=== PATIENT | female | born 1950 | race African-American/Black ===

== ENCOUNTER 2016-06-12 10:09 | Emergency (ER) | payer OTHER ==
--- NOTE | 2016-06-12 11:21 | EDDOCDS ---
Nurse's Notes [facility] Name: Jazzy Farmer Age: 66 yrs Sex: Female : 1950 Arrival Date: 06/12/2016 Time: 10:09 Bed Triage 2 Private MD: NO PRIMARY PHYSICIAN, . Diagnosis: Streptococcal pharyngitis;Fever presenting with conditions classified elsewhere-BY HISTORY Presentation: 06/12 10:16 Presenting complaint: Patient states: Sore throat, congestion and cough for three days. jo3 Risk factors: Stridor is not present. Drooling is not present. Shortness of breath is not present. Cellulitis is not present. Adult Sepsis Screening: The patient does not have new or worsening altered mentation. Patient's respiratory rate is less than 22. Systolic blood pressure is greater than 100. Patient has a qSOFA score of 0- Negative Sepsis Screen. Suicide/Homicide risk assessment- the patient denies having any suicidal and/or homicidal ideations and does not present with any other emotional, behavioral or mental health complaints. 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 Transition of care: patient was not received from another setting of care. 10:16 Acuity: NOHEMY Level 4 jo3 10:16 Method Of Arrival: Walkin/Carried/Asstd jo3 Triage Assessment: 10:20 General: Appears in no apparent distress, Behavior is appropriate for age, cooperative. jo3 Neurological: Level of Consciousness is awake, alert, Oriented to person, place, time. Derm: Skin is pink, warm & dry. Historical: - Allergies: No known drug Allergies; - Home Meds: 1. Diovan 40 mg oral tab 1 tab once daily 2. levothyroxine Unknown Oral once daily 3. HCTZ 25mg daily 4. aspirin 81 mg Oral tab 1 tab once daily - PMHx: Hypothyroidism; Hypertension; - PSHx: back surgery spinal fusion; abdominoplasty; Hysterectomy; C Section x4; - Social history: Smoking status: Patient states former smoker of tobacco. No barriers to communication noted, The patient speaks fluent Chilean, Speaks appropriately for age. - Family history: Not pertinent. - : The pt / caregiver states he / she is not on anticoagulants. Home medication list is obtained from the patient. - Exposure Risk Screening:: None identified. Screenin:37 Screening information is obtained from the patient. Fall risk: No risks identified. ck1 Assistance ADL's: requires no assistance with activities of daily living. Abuse/DV Screen: The patient / caregiver reports he/she is: not in a situation that causes fear, pain or injury. Nutritional screening: No deficits noted. Advance Directives: Currently, there is no health care proxy. home support is adequate. Assessment: 10:37 General: Appears in no apparent distress, comfortable, Behavior is appropriate for age, ck1 cooperative. Pain: Location: throat Pain currently is 6 out of 10 on a pain scale. EENT: Throat is reddened has patchy exudate has enlarged tonsils bilaterally with gag reflex present. Respiratory: Airway is patent Respiratory effort is unlabored, Respiratory pattern is regular, symmetrical. Derm: Skin is pink, warm & dry. 11:19 General: Appears in no apparent distress, comfortable, Behavior is appropriate for age, jo3 cooperative, pleasant. Neurological: Level of Consciousness is awake, alert, Oriented to person, place, time. Respiratory: Airway is patent Respiratory effort is even, unlabored. Vital Signs: 10:10 BP 128 / 78; Pulse 67; Resp 18; Temp 97.9(O); Pulse Ox 97% on R/A; Weight 74.39 kg (R); elp Height 5 ft. 0 in. (152.40 cm) (R); Pain 8/10; 10:10 Body Mass Index 32.03 (74.39 kg, 152.40 cm) elp Vitals: 10:10 Log In Time: June 12, 2016 at 10:08. elp 10:40 Strep Screen is obtained and tested: Positive. ck1 ED Course: 10:09 Patient visited by Tammy Terrazas PCA. elp 10:09 Patient moved to Waiting elp 10:10 NO PRIMARY PHYSICIAN, . is Private Physician. elp 10:10 Patient visited by Tammy Terrazas PCA. elp 10:10 Patient moved to Pre RCE elp 10:16 Triage Initiated jo3 10:20 Patient visited by Loren Mccullough RN. jo3 10:31 Patient moved to Triage 2 jo3 10:37 The patient / caregiver is instructed regarding the plan of care and ED course. ck1 10:42 Mary Kat PA-C is PHCP. dt4 10:42 Brittani Hernandez MD is Attending Physician. dt4 10:42 Patient visited by Mary Kat PA-C. dt4 11:04 [facility] is Referral Physician. dt4 11:19 No IV's were initiated during this patient's visit. No procedures done that require jo3 assistance. Order Results: There are currently no results for this order. Outcome: 11:04 Discharge ordered by Provider. dt4 11:19 Discharge Assessment: Patient awake, alert and oriented x 3. No cognitive and/or jo3 functional deficits noted. Patient verbalized understanding of disposition instructions. patient administered narcotics - no. The following High Risk Discharge criteria are identified: None. Discharged to home ambulatory. Condition: stable. Discharge instructions given to patient, Instructed on discharge instructions, follow up and referral plans. medication usage, Demonstrated understanding of instructions, medications, Pt was receptive of discharge instructions/ teaching. Prescriptions given X 2. No special radiology studies were completed. Property sent home with patient. 11:20 Patient left the ED. jo3 Signatures: Selene Amador,RN RN ck1 Loren Mccullough RN RN jo3 Tammy Terrazas, SENIOR CONTROLS ANALYST SENIOR CONTROLS ANALYST elp Mary Kat PA-C PA-C dt4 [facility]
--- NOTE | 2016-06-12 11:21 | EDDOCDS ---
Physician Documentation [facility] Name: Jazzy Farmer Age: 66 yrs Sex: Female : 1950 Arrival Date: 06/12/2016 Time: 10:09 Bed Triage 2 Private MD: NO PRIMARY PHYSICIAN, . Disposition: 06/12/16 11:04 Discharged to Home/Self Care. Impression: Streptococcal pharyngitis, Fever presenting with conditions classified elsewhere - BY HISTORY. - Condition is Stable. - Discharge Instructions: Fever, Adult, Strep Throat. - Prescriptions for Amoxicillin 875 mg Oral Tablet - take 1 tablet by ORAL route every 12 hours for 10 days; 20 tablet. magic mouthwash Mucous Membrane Solution - as directed 5 milliliters by ORAL route 3-4 times daily As needed GARGLE, SWISH, SPIT. MAALOX, LIQUID BENADRYL, VISCOUS LIDOCAINE. 1:1:1; 237 milliliter. - Medication Reconciliation, Local Pharmacy Hours form. - Follow up: Emergency Department; When: As needed; Reason: Worsening of conditions. [facility]: [facility]; When: Call to arrange an appointment; Reason: Recheck today's complaints, Continuance of care, To establish care. - Problem is new. - Symptoms are unchanged. Historical: - Allergies: No known drug Allergies; - Home Meds: 1. Diovan 40 mg oral tab 1 tab once daily 2. levothyroxine Unknown Oral once daily 3. HCTZ 25mg daily 4. aspirin 81 mg Oral tab 1 tab once daily - PMHx: Hypothyroidism; Hypertension; - PSHx: back surgery spinal fusion; abdominoplasty; Hysterectomy; C Section x4; - Social history: Smoking status: Patient states former smoker of tobacco. No barriers to communication noted, The patient speaks fluent French, Speaks appropriately for age. - Family history: Not pertinent. - : The pt / caregiver states he / she is not on anticoagulants. Home medication list is obtained from the patient. - Exposure Risk Screening:: None identified. Vital Signs: 06/12 10:10 BP 128 / 78; Pulse 67; Resp 18; Temp 97.9(O); Pulse Ox 97% on R/A; Weight 74.39 kg / elp 164 lbs (R); Height 5 ft. 0 in. (152.40 cm) (R); Pain 8; 10:10 Body Mass Index 32.03 (74.39 kg, 152.40 cm) elp MDM: 10:23 Strep Screen, Nursing ordered. dt4 Signatures: Selene Amador,RN RN ck1 Loren McculloughRN RN jo3 Mary Kat, LANDEN SCHUSTER dt4 MTDD
--- NOTE | 2016-06-14 12:21 | EDDOCDS ---
Nurse's Notes [facility] Name: Jazzy Farmer Age: 66 yrs Sex: Female : 1950 Arrival Date: 06/12/2016 Time: 10:09 Bed Triage 2 Private MD: NO PRIMARY PHYSICIAN, . Diagnosis: Streptococcal pharyngitis;Fever presenting with conditions classified elsewhere-BY HISTORY Presentation: 06/12 10:16 Presenting complaint: Patient states: Sore throat, congestion and cough for three days. jo3 Risk factors: Stridor is not present. Drooling is not present. Shortness of breath is not present. Cellulitis is not present. Adult Sepsis Screening: The patient does not have new or worsening altered mentation. Patient's respiratory rate is less than 22. Systolic blood pressure is greater than 100. Patient has a qSOFA score of 0- Negative Sepsis Screen. Suicide/Homicide risk assessment- the patient denies having any suicidal and/or homicidal ideations and does not present with any other emotional, behavioral or mental health complaints. 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 Transition of care: patient was not received from another setting of care. 10:16 Acuity: NOHEMY Level 4 jo3 10:16 Method Of Arrival: Walkin/Carried/Asstd jo3 Triage Assessment: 10:20 General: Appears in no apparent distress, Behavior is appropriate for age, cooperative. jo3 Neurological: Level of Consciousness is awake, alert, Oriented to person, place, time. Derm: Skin is pink, warm & dry. Historical: - Allergies: No known drug Allergies; - Home Meds: 1. Diovan 40 mg oral tab 1 tab once daily 2. levothyroxine Unknown Oral once daily 3. HCTZ 25mg daily 4. aspirin 81 mg Oral tab 1 tab once daily - PMHx: Hypothyroidism; Hypertension; - PSHx: back surgery spinal fusion; abdominoplasty; Hysterectomy; C Section x4; - Social history: Smoking status: Patient states former smoker of tobacco. No barriers to communication noted, The patient speaks fluent Omani, Speaks appropriately for age. - Family history: Not pertinent. - : The pt / caregiver states he / she is not on anticoagulants. Home medication list is obtained from the patient. - Exposure Risk Screening:: None identified. Screenin:37 Screening information is obtained from the patient. Fall risk: No risks identified. ck1 Assistance ADL's: requires no assistance with activities of daily living. Abuse/DV Screen: The patient / caregiver reports he/she is: not in a situation that causes fear, pain or injury. Nutritional screening: No deficits noted. Advance Directives: Currently, there is no health care proxy. home support is adequate. Assessment: 10:37 General: Appears in no apparent distress, comfortable, Behavior is appropriate for age, ck1 cooperative. Pain: Location: throat Pain currently is 6 out of 10 on a pain scale. EENT: Throat is reddened has patchy exudate has enlarged tonsils bilaterally with gag reflex present. Respiratory: Airway is patent Respiratory effort is unlabored, Respiratory pattern is regular, symmetrical. Derm: Skin is pink, warm & dry. 11:19 General: Appears in no apparent distress, comfortable, Behavior is appropriate for age, jo3 cooperative, pleasant. Neurological: Level of Consciousness is awake, alert, Oriented to person, place, time. Respiratory: Airway is patent Respiratory effort is even, unlabored. Vital Signs: 10:10 BP 128 / 78; Pulse 67; Resp 18; Temp 97.9(O); Pulse Ox 97% on R/A; Weight 74.39 kg (R); elp Height 5 ft. 0 in. (152.40 cm) (R); Pain 8/10; 10:10 Body Mass Index 32.03 (74.39 kg, 152.40 cm) elp Vitals: 10:10 Log In Time: June 12, 2016 at 10:08. elp 10:40 Strep Screen is obtained and tested: Positive. ck1 ED Course: 10:09 Patient visited by Tammy Terrazas PCA. elp 10:09 Patient moved to Waiting elp 10:10 NO PRIMARY PHYSICIAN, . is Private Physician. elp 10:10 Patient visited by Tammy Terrazas PCA. elp 10:10 Patient moved to Pre RCE elp 10:16 Triage Initiated jo3 10:20 Patient visited by Loren Mccullough RN. jo3 10:31 Patient moved to Triage 2 jo3 10:37 The patient / caregiver is instructed regarding the plan of care and ED course. ck1 10:42 Mary Kat PA-C is PHCP. dt4 10:42 Brittani Hernandez MD is Attending Physician. dt4 10:42 Patient visited by Mary Kat PA-C. dt4 11:04 [facility] is Referral Physician. dt4 11:19 No IV's were initiated during this patient's visit. No procedures done that require jo3 assistance. 11:34 [facility] Payment Agreement was scanned into [employer] and attached to record. mm15 14:28 Patient name changed from Jazzy\S\\S\Farmer\S\ to Jazzy\S\ \S\Farmer. EDMS 15:01 T-Sheet-- Draft Copy was scanned into [employer] and attached to record. gb Order Results: There are currently no results for this order. Outcome: 11:04 Discharge ordered by Provider. dt4 11:19 Discharge Assessment: Patient awake, alert and oriented x 3. No cognitive and/or jo3 functional deficits noted. Patient verbalized understanding of disposition instructions. patient administered narcotics - no. The following High Risk Discharge criteria are identified: None. Discharged to home ambulatory. Condition: stable. Discharge instructions given to patient, Instructed on discharge instructions, follow up and referral plans. medication usage, Demonstrated understanding of instructions, medications, Pt was receptive of discharge instructions/ teaching. Prescriptions given X 2. No special radiology studies were completed. Property sent home with patient. 11:20 Patient left the ED. jo3 Signatures: Dispatcher [employer] EDNE Aliyah Squires, Reg Reg gb Selene AmadorRN RN ck1 Loren McculloughRN RN jo3 Amado Pereira mm15 Nini, Tammy, MECHANICAL FITTER MECHANICAL FITTER elp Mary Kat PA-C PA-C dt4 Chart Complete MTDD
--- NOTE | 2016-06-14 12:21 | EDDOCDS ---
Physician Documentation [facility] Name: Jazzy Farmer Age: 66 yrs Sex: Female : 1950 Arrival Date: 06/12/2016 Time: 10:09 Bed Triage 2 Private MD: NO PRIMARY PHYSICIAN, . Disposition: 06/12/16 11:04 Discharged to Home/Self Care. Impression: Streptococcal pharyngitis, Fever presenting with conditions classified elsewhere - BY HISTORY. - Condition is Stable. - Discharge Instructions: Fever, Adult, Strep Throat. - Prescriptions for Amoxicillin 875 mg Oral Tablet - take 1 tablet by ORAL route every 12 hours for 10 days; 20 tablet. magic mouthwash Mucous Membrane Solution - as directed 5 milliliters by ORAL route 3-4 times daily As needed GARGLE, SWISH, SPIT. MAALOX, LIQUID BENADRYL, VISCOUS LIDOCAINE. 1:1:1; 237 milliliter. - Medication Reconciliation, Local Pharmacy Hours form. - Follow up: Emergency Department; When: As needed; Reason: Worsening of conditions. Follow up: [facility]; When: Call to arrange an appointment; Reason: Recheck today's complaints, Continuance of care, To establish care. - Problem is new. - Symptoms are unchanged. Historical: - Allergies: No known drug Allergies; - Home Meds: 1. Diovan 40 mg oral tab 1 tab once daily 2. levothyroxine Unknown Oral once daily 3. HCTZ 25mg daily 4. aspirin 81 mg Oral tab 1 tab once daily - PMHx: Hypothyroidism; Hypertension; - PSHx: back surgery spinal fusion; abdominoplasty; Hysterectomy; C Section x4; - Social history: Smoking status: Patient states former smoker of tobacco. No barriers to communication noted, The patient speaks fluent Icelandic, Speaks appropriately for age. - Family history: Not pertinent. - : The pt / caregiver states he / she is not on anticoagulants. Home medication list is obtained from the patient. - Exposure Risk Screening:: None identified. Vital Signs: 06/12 10:10 BP 128 / 78; Pulse 67; Resp 18; Temp 97.9(O); Pulse Ox 97% on R/A; Weight 74.39 kg / elp 164 lbs (R); Height 5 ft. 0 in. (152.40 cm) (R); Pain 810; 10:10 Body Mass Index 32.03 (74.39 kg, 152.40 cm) elp MDM: 10:23 Strep Screen, Nursing ordered. dt4 : Financial registration complete. mm15 [facility] Payment Agreement was scanned into [employer] and attached to record. mm15 15:01 T-Sheet-- Draft Copy was scanned into [employer] and attached to record. gb Signatures: Aliyah Squires, Reg Reg gb Selene AmadorRN RN ck1 Loren McculloughRN RN jo3 Amado Pereira mm15 Mary Kat PA-C PA-C dt4 The chart was reviewed and I authenticate all verbal orders and agree with the evaluation and treatment provided.Attachments: [facility] Payment Agreement mm15 15:01 T-Sheet-- Draft Copy gb Chart Complete MTDD
--- NOTE | 2016-06-14 12:21 | EDDOCDS ---
Physician Documentation [facility] Name: Jazzy Farmer Age: 66 yrs Sex: Female : 1950 Arrival Date: 06/12/2016 Time: 10:09 Bed Triage 2 Private MD: NO PRIMARY PHYSICIAN, . Disposition: 06/12/16 11:04 Discharged to Home/Self Care. Impression: Streptococcal pharyngitis, Fever presenting with conditions classified elsewhere - BY HISTORY. - Condition is Stable. - Discharge Instructions: Fever, Adult, Strep Throat. - Prescriptions for Amoxicillin 875 mg Oral Tablet - take 1 tablet by ORAL route every 12 hours for 10 days; 20 tablet. magic mouthwash Mucous Membrane Solution - as directed 5 milliliters by ORAL route 3-4 times daily As needed GARGLE, SWISH, SPIT. MAALOX, LIQUID BENADRYL, VISCOUS LIDOCAINE. 1:1:1; 237 milliliter. - Medication Reconciliation, Local Pharmacy Hours form. - Follow up: Emergency Department; When: As needed; Reason: Worsening of conditions. Follow up: [facility]; When: Call to arrange an appointment; Reason: Recheck today's complaints, Continuance of care, To establish care. - Problem is new. - Symptoms are unchanged. Historical: - Allergies: No known drug Allergies; - Home Meds: 1. Diovan 40 mg oral tab 1 tab once daily 2. levothyroxine Unknown Oral once daily 3. HCTZ 25mg daily 4. aspirin 81 mg Oral tab 1 tab once daily - PMHx: Hypothyroidism; Hypertension; - PSHx: back surgery spinal fusion; abdominoplasty; Hysterectomy; C Section x4; - Social history: Smoking status: Patient states former smoker of tobacco. No barriers to communication noted, The patient speaks fluent Spanish, Speaks appropriately for age. - Family history: Not pertinent. - : The pt / caregiver states he / she is not on anticoagulants. Home medication list is obtained from the patient. - Exposure Risk Screening:: None identified. Vital Signs: 06/12 10:10 BP 128 / 78; Pulse 67; Resp 18; Temp 97.9(O); Pulse Ox 97% on R/A; Weight 74.39 kg / elp 164 lbs (R); Height 5 ft. 0 in. (152.40 cm) (R); Pain 810; 10:10 Body Mass Index 32.03 (74.39 kg, 152.40 cm) elp MDM: 10:23 Strep Screen, Nursing ordered. dt4 : Financial registration complete. mm15 [facility] Payment Agreement was scanned into [employer] and attached to record. mm15 15:01 T-Sheet-- Draft Copy was scanned into [employer] and attached to record. gb Signatures: Aliyah Squires, Reg Reg gb Selene AmadorRN RN ck1 Loren McculloughRN RN jo3 Amado Pereira mm15 Mary Kat PA-C PA-C dt4 The chart was reviewed and I authenticate all verbal orders and agree with the evaluation and treatment provided.Attachments: [facility] Payment Agreement mm15 15:01 T-Sheet-- Draft Copy gb Chart Complete MTDD
== END 2016-06-12 11:20 | disposition home or self-care (01) ==
LOC: M ED 10:09
DX: J02.0 Streptococcal pharyngitis (principal); R50.9 Fever, unspecified; I10 Essential (primary) hypertension; E03.9 Hypothyroidism, unspecified; Z79.899 Other long term (current) drug therapy

== ENCOUNTER 2016-12-21 09:52 | Emergency (ER) | payer MEDICARE, OTHER ==
[~2016-12-21] VITALS: Ht 152.4 cm; Wt 74.0 kg
[2016-12-21] MEDS ORDERED: ASPI81CH PO (10:00)
[2016-12-21] MEDS ORDERED: LEVO25TA5 PO (10:00)
[2016-12-21] MEDS ORDERED: VALS80TA PO (10:00)
[2016-12-21] MEDS ORDERED: HYDR25TAB PO (10:00)
--- NOTE | 2016-12-21 11:03 | REP ---
Left foot four views : There is no fracture or dislocation. Mineralization and joint spaces are normal. There are no calcifications or foreign bodies. Impression: Negative left foot. There is no significant change compared to 11/19/2015. . Signed by Clemente Lucas MD 12/21/2016 10:54 A
[2016-12-21 11:26] VITALS: BP 135/79
== END 2016-12-21 11:29 | disposition home or self-care (01) ==
LOC: M ED 09:52
DX: S93.602A Unspecified sprain of left foot, initial encounter (principal); X50.1XXA Overexertion from prolonged static or awkward postures, initial encounter; Y92.099 Unspecified place in other non-institutional residence as the place of occurrence of the external cause; Y93.9 Activity, unspecified; Y99.9 Unspecified external cause status; I10 Essential (primary) hypertension; E03.9 Hypothyroidism, unspecified; Z79.82 Long term (current) use of aspirin; Z79.899 Other long term (current) drug therapy

== ENCOUNTER → 2017-06-08 | Outpatient (CLI) | payer MEDICARE | LOC: M WHC 10:44 | DX: Z12.31 Encounter for screening mammogram for malignant neoplasm of breast (principal); R13.10 Dysphagia, unspecified; Z13.820 Encounter for screening for osteoporosis; M81.0 Age-related osteoporosis without current pathological fracture; M85.88 Other specified disorders of bone density and structure, other site | CPT/HCPCS: 77067 ==

== ENCOUNTER → 2017-10-15 | Outpatient (REF) | payer OTHER ==
[2017-10-15 17:13] LABS: ESTIMATED AVERAGE GLUCOSE 126 MG/DL (60-110)
[2017-10-15 17:20] LABS: CHOLESTEROL LEVEL 141 MG/DL (<200); CHOLESTEROL RISK RATIO 1.931 (<5); HDL CHOLESTEROL 73 MG/DL (>40); NON-HDL-C 68 MG/DL; TRIGLYCERIDES LEVEL 70 MG/DL (<150)
== END ==
LOC: M SFHCLERA 11:22
DX: E03.9 Hypothyroidism, unspecified (principal); E78.5 Hyperlipidemia, unspecified

== ENCOUNTER → 2017-10-15 | Outpatient (REF) | payer OTHER, MEDICARE ==
[2017-10-16 10:19] LABS: BASO # 0.1 10^3/uL (0.0-0.2); BASO % 1.1 % (0.0-1.0); EOS # 0.2 10^3/uL (0.0-0.50); HEMOGLOBIN 13.4 g/dl (12.0-15.5); IMMATURE GRANULOCYTE % 0.2 % (0-3.0); LYMPH # 2.8 10^3/uL (1.5-4.5); LYMPH % 44.1 % (24.0-44.0); MEAN CORPUSCULAR HEMOGLOBIN 29.6 pg (27.0-33.0); MEAN CORPUSCULAR HGB CONC 31.9 g/dl (32.0-36.5); MEAN CORPUSCULAR VOLUME 92.9 fl (80.0-96.0); MONO # 0.4 10^3/uL (0.0-0.8); MONO % 6.1 % (0.0-5.0); NEUTROPHILS # 2.9 10^3/uL (1.8-7.7); NEUTROPHILS % 45.5 % (36.0-66.0); PLATELET COUNT, AUTOMATED 287 10^3/uL (150-450); RED BLOOD COUNT 4.52 10^6/uL (4.00-5.40); RED CELL DISTRIBUTION WIDTH 13.6 % (11.5-14.5); WHITE BLOOD COUNT 6.3 10^3/uL (4.0-10.0)
[2017-10-16 10:31] LABS: URIC ACID 3.9 MG/DL (2.6-6.0)
[2017-10-16 10:35] LABS: ERYTHROCYTE SEDIMENTATION RATE 7 mm/hr (0-30)
== END ==
LOC: M LAB REF 09:48
DX: M10.00 Idiopathic gout, unspecified site (principal)

== ENCOUNTER → 2018-03-03 | Outpatient (CLI) | payer OTHER, MEDICARE | LOC: M LRY 10:54 | DX: M17.12 Unilateral primary osteoarthritis, left knee (principal); S83.242A Other tear of medial meniscus, current injury, left knee, initial encounter; X58.XXXA Exposure to other specified factors, initial encounter; Y92.89 Other specified places as the place of occurrence of the external cause | CPT/HCPCS: 73564 ==

== ENCOUNTER → 2018-03-12 | Outpatient (CLI) | payer MEDICARE, OTHER | LOC: M LRY 10:20 | DX: M79.641 Pain in right hand (principal) | CPT/HCPCS: 73130 ==

== ENCOUNTER 2018-07-03 09:34 | Emergency (ER) | payer MEDICARE, OTHER ==
[~2018-07-03] VITALS: Ht 152.4 cm; Wt 72.7 kg
[~2018-07-03 09:34] MED LIST: ASPI81CH PO; HYDR25TAB PO; LEVO25TA5 PO; VALS80TA PO
[2018-07-03 09:35] VITALS: BP 147/82
--- NOTE | 2018-07-03 10:30 | REP ---
Left knee five views: There are no comparisons. There is no fracture or dislocation. There is no hemarthrosis. There is chondrocalcinosis suggestive of CPPD. There is mild joint space narrowing of the medial compartment. There is joint space narrowing and osteophytic formation of the patellofemoral compartment. The findings are compatible with osteoarthritis. Impression: No fracture, dislocation, or hemarthrosis. Chondrocalcinosis suggestive of CPPD. Osteoarthritis. Electronically Signed by Clemente Lucas MD 07/03/2018 10:23 A
[2018-07-03] MEDS ORDERED: NAPR-50 PO (11:08)
== END 2018-07-03 11:18 | disposition home or self-care (01) ==
LOC: M ED 09:34
DX: S83.92XA Sprain of unspecified site of left knee, initial encounter (principal); M17.12 Unilateral primary osteoarthritis, left knee; X50.1XXA Overexertion from prolonged static or awkward postures, initial encounter; Y92.099 Unspecified place in other non-institutional residence as the place of occurrence of the external cause; Y93.9 Activity, unspecified; Y99.9 Unspecified external cause status; E78.5 Hyperlipidemia, unspecified; I10 Essential (primary) hypertension; Z79.899 Other long term (current) drug therapy

== ENCOUNTER → 2019-02-01 | Outpatient (CLI) | payer OTHER ==
[~2019-02-01] MED LIST changes: -ASPI81CH PO; +ASPI81CH49 PO; +NAPR-837 PO
--- NOTE | 2019-02-01 11:04 | REP ---
CHEST, TWO VIEWS: No comparison. Two views of the chest are performed. I see no acute infiltrate. The heart is not significantly enlarged. There is tortuosity of the thoracic aorta. The mediastinal silhouette is otherwise unremarkable. There are degenerative changes of the spine. IMPRESSION: No acute infiltrate. Electronically Signed by Clemente Green MD 02/01/2019 03:57 P
== END ==
LOC: M LRY 10:26
PROVIDERS: ATTEND Family Medicine
DX: R05 Cough (principal)

== ENCOUNTER → 2019-03-02 | Outpatient (REF) | payer OTHER ==
[2019-03-02 13:29] LABS: BLOOD UREA NITROGEN 14 MG/DL (7-18); CALCIUM LEVEL 9.8 MG/DL (8.8-10.2); CARBON DIOXIDE LEVEL 29 MEQ/L (21-32); CHLORIDE LEVEL 103 MEQ/L (98-107); CHOLESTEROL LEVEL 122 MG/DL (<200); CHOLESTEROL RISK RATIO 1.794 (<5); GLOMERULAR FILTRATION RATE > 60.0 (>45); GLUCOSE, FASTING 88 MG/DL (70-100); HDL CHOLESTEROL 68 MG/DL (>40); LDL CHOLESTEROL 38 MG/DL (<100); NON-HDL-C 54 MG/DL; POTASSIUM SERUM 3.7 MEQ/L (3.5-5.1); SODIUM LEVEL 140 MEQ/L (136-145); THYROID STIMULATING HORMONE < 0.005 uIU/ML (0.358-3.740); TRIGLYCERIDES LEVEL 81 MG/DL (<150)
== END ==
LOC: M SFHCLERA 10:12
PROVIDERS: ATTEND Family Medicine
DX: E03.9 Hypothyroidism, unspecified (principal); E78.5 Hyperlipidemia, unspecified

== ENCOUNTER → 2019-03-04 | Outpatient (CLI) | payer OTHER ==
--- NOTE | 2019-03-04 12:35 | REPMRS ---
Patient History The patient states she has not had a clinical breast exam in over a year. Family history of breast cancer under age 50 in sister, premenopausal breast cancer under age 50 in maternal cousin, premenopausal breast cancer in maternal cousin. 3D TOMOSYNTHESIS WAS PERFORMED. The Danial Hart lifetime risk for breast cancer is 12.0%. Digital Mammo Screening Bilat: March 04, 2019 - Exam #: [id number] Bilateral CC and MLO view(s) were taken. Technologist: Lucina Cavazos, Technologist Prior study comparison: June 08, 2017, digital woman screen mammo, performed at [facility]. 2013, bilateral mammogram, performed at [facility]. FINDINGS: The breast tissue is heterogeneously dense. This may lower the sensitivity of mammography. There has been no change in the appearance of the mammogram from the prior studies. There is a moderate amount of residual fibroglandular tissue which is fairly symmetric. There is no interval development of dominant mass, areas of architectural distortion, or clustered microcalcification typical of malignancy. Assessment: BI-RADS/ACR category 1 mammogram. Negative Mammogram. Recommendation Routine screening mammogram in 1 year (for women over age 40). This mammogram was interpreted with the aid of an FDA-approved computer-aided dectection system. Electronically Signed By: Clemente Green MD 03/04/19 [id number]
== END ==
LOC: M RAD 10:51
PROVIDERS: ATTEND Family Medicine
DX: Z12.31 Encounter for screening mammogram for malignant neoplasm of breast (principal); Z80.3 Family history of malignant neoplasm of breast

== ENCOUNTER → 2019-03-17 | Outpatient (REF) | payer OTHER | LOC: M SFHCLERA 10:08 | PROVIDERS: ATTEND Family Medicine | DX: E03.9 Hypothyroidism, unspecified (principal) ==

== ENCOUNTER → 2019-04-11 | Outpatient (REF) | payer OTHER | LOC: M SFHCLERA 12:34 | PROVIDERS: ATTEND Family Medicine | DX: E05.80 Other thyrotoxicosis without thyrotoxic crisis or storm (principal) ==

== ENCOUNTER → 2019-05-25 | Outpatient (REF) | payer MEDICARE, OTHER | LOC: M SFHCWAGY 18:09 | PROVIDERS: ATTEND Nurse Practitioner Family | DX: Z12.4 Encounter for screening for malignant neoplasm of cervix (principal) ==

== ENCOUNTER → 2019-05-25 | Outpatient (REF) | payer MEDICARE, OTHER | LOC: M SFHCLERA 10:41 | PROVIDERS: ATTEND Family Medicine | DX: J40 Bronchitis, not specified as acute or chronic (principal); Z79.899 Other long term (current) drug therapy ==

== ENCOUNTER → 2019-07-12 | Outpatient (REF) | payer OTHER ==
[2019-07-12 15:26] LABS: FREE T4 1.06 NG/DL (0.76-1.46); THYROID STIMULATING HORMONE 1.66 uIU/ML (0.358-3.740)
== END ==
LOC: M SFHCLERA 11:33
PROVIDERS: ATTEND Family Medicine
DX: E03.9 Hypothyroidism, unspecified (principal)